=== PATIENT | female | born 1950 | race Caucasian/White ===

== ENCOUNTER → 2017-02-04 07:55 | Outpatient (CLI) | payer MEDICARE | END | disposition home or self-care (01) | LOC: D.US 07:55 | DX: I71.4 Abdominal aortic aneurysm, without rupture (principal) ==

== ENCOUNTER → 2017-03-08 08:32 | Outpatient (CLI) | payer MEDICARE ==
--- NOTE | 2017-03-12 08:55 | EC ---
PATIENT:SHAWN LOWE DATE OF SERVICE: 03/08/17 SEX: F MEDICAL RECORD: [id number] DATE OF : 46 LOCATION:[facility] [place] AGE OF PATIENT: 66 ADMISSION DATE: 03/08/17 REFERRING PHYSICIAN: INTERPRETING PHYSICIAN: REJI SMITH MD ECHOCARDIOGRAM REPORT ECHO CHARGES 4 ECHO COMPLETE CLINICAL DIAGNOSIS: CHEST PAIN,PALPITATIONS ECHOCARDIOGRAPHIC MEASUREMENTS (adult normal given) AC root (d.<3.7cm) 3.1 cm LV Septum d (<1.2 cm> 1.2 cm Valve Excursion 1.8 cm LV Septum (systole) 1.3 cm Left Atria (s.<4.0cm> 3.6 cm LVPW d(<1.2cm) 1.2 cm RV (d.<2.3cm) 3.4 cm LVPW (sytole) 1.6 cm LV diastole(<5.6CM) 4.2 cm MV E-F(>70mm/sec) cm LV systole 3.0 cm LVOT Diameter 1.9 cm MV exc.(>10mm) 2.2 cm Est.ejection fraction (50-75%) % Pericardial Effusion N DOPPLER: LVIT cm/sec A 68.0 cm/sec E 82.0 cm/sec LA cm/sec RVSP 36 mmHg LVOT 114 cm/sec AOP1/2T m/s Asc. Ao 152 cm/sec RVOT 86 cm/sec RA cm/sec PA 111 cm/sec AV Gradient Peak 9.20 mmHg AV Mean 4.47 mmHg AV Area 2.0 cm MV Gradient Peak 5.44 mmHg MV Mean 1.66 mmHg MV Area cm COMMENTS: Freelance Patternmaker: 2 PRISCILA [place] Supervisor Engine Assembly: 4 Dr. Smith TAPE# PACS DATE OF SERVICE: 03/08/2017 PROCEDURE: Transthoracic echocardiogram. FINDINGS: 1. Left ventricle is normal size, normal function. 2. The right ventricle is mildly enlarged. 3. The left atrium is normal size, normal function. 4. The aortic valve is normal. 5. The right atrium is mildly dilated. ECHOCARDIOGRAM REPORT [id number] SHAWN LOWE [place] 6. The mitral valve has mild mitral regurgitation. Inflow characteristics into the left ventricle were normal. 7. The triscupid valve has mild tricuspid regurgitation. The right ventricular systolic pressures are in the upper ends of normal to mildly elevated. 8. Pericardium is normal. 9. The pulmonic valve is normal. 10. No other gross abnormalities. CONCLUSION: Overall normal echocardiogram for age. TRANSINT:[id number] Voice Confirmation ID: [id number] DOCUMENT ID: [id number] REJI SMITH MD at 0855 CC: [id number] DICTATION DATE: 03/11/17816 NON DESTRUCTIVE TESTING INSPECTOR: 03/11/17 1055 [facility] CLI 03/08/17 [id number] [place] [address]
== END | disposition home or self-care (01) ==
LOC: D.ECHO 08:32
DX: R07.9 Chest pain, unspecified (principal); R00.2 Palpitations; E78.01 Familial hypercholesterolemia; E03.9 Hypothyroidism, unspecified

== ENCOUNTER → 2017-03-21 17:27 | Outpatient (CLI) | payer MEDICARE ==
[2017-03-21 19:00] LABS: ALBUMIN 3.8 g/dL (3.4-5.0); BILIRUBIN - DIRECT 0.15 mg/dL (0.00-0.30); BILIRUBIN - INDIRECT 0.36 mg/dL (0.00-1.00); BILIRUBIN - TOTAL 0.51 mg/dL (0.2-1.3); CHOL - HDL RATIO 1.8 ratio (2.3-4.1); LDL-HDL RATIO 0.7 ratio (1.5-3.5)
== END | disposition home or self-care (01) ==
LOC: D.LABREF 17:27
PROVIDERS: Internal Medicine Cardiovascular Disease
DX: R07.9 Chest pain, unspecified (principal); R00.2 Palpitations

== ENCOUNTER → 2017-11-13 12:48 | Outpatient (CLI) | payer MEDICARE | END | disposition home or self-care (01) | LOC: D.CT 12:48 | DX: I71.4 Abdominal aortic aneurysm, without rupture (principal) ==

== ENCOUNTER → 2018-04-09 19:35 | Outpatient (CLI) | payer MEDICARE | END | disposition home or self-care (01) | LOC: D.MAMMO 03-21 11:45 | DX: Z12.31 Encounter for screening mammogram for malignant neoplasm of breast (principal) ==

== ENCOUNTER 2018-04-28 08:00 | Outpatient (CLI) | payer MEDICARE | END 2018-04-28 09:00 | disposition home or self-care (01) | LOC: D.MAMMO 08:00 | DX: R92.8 Other abnormal and inconclusive findings on diagnostic imaging of breast (principal) ==

== ENCOUNTER → 2018-04-29 14:23 | Outpatient (CLI) | payer MEDICARE | END | disposition home or self-care (01) | LOC: D.CT 14:23 | DX: I71.4 Abdominal aortic aneurysm, without rupture (principal) ==

== ENCOUNTER → 2018-11-05 06:57 | Outpatient (CLI) | payer MEDICARE | END | disposition home or self-care (01) | LOC: D.US 06:57 | PROVIDERS: ATTEND Internal Medicine Interventional Cardiology | DX: I71.4 Abdominal aortic aneurysm, without rupture (principal) ==

== ENCOUNTER 2019-04-03 08:00 | Outpatient (CLI) | payer OTHER | END 2019-04-03 23:59 | disposition home or self-care (01) | LOC: D.MAMMO 08:00 | PROVIDERS: ATTEND Family Medicine | DX: Z12.31 Encounter for screening mammogram for malignant neoplasm of breast (principal) ==

== ENCOUNTER 2020-06-21 18:46 | Outpatient (CLI) | payer OTHER ==
[2020-03-14 08:44] VITALS: BMI 22.7
[~2020-06-21 18:46] MED LIST: CRESTOR20 MG PO; HYDROCODON-ACE1 EA10 PO; LEVOTHYROXINE75 MCG PO
== END 2020-06-21 23:59 | disposition home or self-care (01) ==
LOC: D.MAMMO 18:46
PROVIDERS: ATTEND Family Medicine
DX: Z12.31 Encounter for screening mammogram for malignant neoplasm of breast (principal)

== ENCOUNTER → 2020-08-11 20:24 | Outpatient (CLI) | payer OTHER ==
[2020-03-14 08:44] VITALS: BMI 22.7
== END | disposition home or self-care (01) ==
LOC: D.MAMMO 10:30
PROVIDERS: ATTEND Family Medicine
DX: R92.8 Other abnormal and inconclusive findings on diagnostic imaging of breast (principal)

== ENCOUNTER 2020-08-25 08:00 | Outpatient (CLI) | payer OTHER ==
[2020-03-14 08:44] VITALS: BMI 22.7
== END 2020-08-25 08:30 | disposition home or self-care (01) ==
LOC: D.MAMMO 08:00
PROVIDERS: ATTEND Family Medicine
DX: R92.8 Other abnormal and inconclusive findings on diagnostic imaging of breast (principal)